=== PATIENT | male | born 1995 | race Two or more races ===

== ENCOUNTER 2020-03-02 17:53 | Outpatient (CLI) | payer OTHER ==
[~2020-03-02 17:53] MED LIST: IBUPROFEN800 MG PO; ORPH100T PO
== END 2020-03-02 17:59 | disposition home or self-care (01) ==
LOC: RAD 17:53
PROVIDERS: ATTEND Orthopaedic Surgery
DX: M25.532 Pain in left wrist (principal)

== ENCOUNTER 2021-12-05 10:10 | Day surgery (SDC) | payer OTHER | END 2021-12-05 19:05 | disposition home or self-care (01) | LOC: CIR.AMB 10:10 | PROVIDERS: ATTEND Otolaryngology Otology & Neurotology | DX: H72.91 Unspecified perforation of tympanic membrane, right ear (principal); H66.91 Otitis media, unspecified, right ear; Z20.822 Contact with and (suspected) exposure to COVID-19; Z86.16 Personal history of COVID-19; E66.9 Obesity, unspecified ==

== ENCOUNTER 2022-06-12 05:35 | Day surgery (SDC) | payer OTHER ==
[~2022-06-12] VITALS: Ht 167.6 cm; Wt 113.4 kg
[~2022-06-12 05:35] MED LIST changes: +CLONAZEPAM0.5 MG PO; +CYCLOBENZAPRINE PO
== END 2022-06-12 14:35 | disposition home or self-care (01) ==
LOC: CIR.AMB 05:35
PROVIDERS: ATTEND Otolaryngology Otology & Neurotology
DX: H66.91 Otitis media, unspecified, right ear (principal); H71.91 Unspecified cholesteatoma, right ear; D68.9 Coagulation defect, unspecified